=== PATIENT | male | born 1935 | race Caucasian/White ===

== ENCOUNTER → 2018-05-28 10:23 | Outpatient (CLI) | payer MEDICARE, SELFPAY ==
[2018-05-28 10:31] VITALS: BMI 34.2
[2018-05-28 11:08] VITALS: BP 150/58; PULSE 89; RESP 20; TEMP 37.4; O2SAT 97
[2018-05-28 11:09] LABS: Basophils % 0.2 % (0.1-2.0); Eosinophils # 0.1 K/mm3 (0.0-0.4); Eosinophils % 0.7 % (0.1-12.0); Hematocrit 40.7 % (42.0-52.0); Hemoglobin 13.3 g/dL (14.1-18.0); Lymphocytes # 1.4 K/mm3 (0.7-4.5); Lymphocytes % 11.2 % (10-50); Mean Corpuscular HGB Conc 32.7 g/dL (31.8-35.4); Mean Corpuscular Hemoglobin 30.8 pg (27.0-31.2); Mean Corpuscular Volume 94.5 fl (80-94); Mean Platelet Volume 6.8 fl (7.4-10.4); Monocytes # 1.2 K/mm3 (0.1-1.0); Monocytes % 9.4 % (1.7-9.3); Neutrophils # 9.5 K/mm3 (1.8-7.8); Neutrophils % 78.4 % (37.0-80.0); Platelet Count 220 K/mm3 (142-424); Red Blood Count 4.31 M/mm3 (4.60-6.20); Red Cell Distribution Width 13.6 % (11.5-17.5); White Blood Count 12.2 K/mm3 (4.8-10.8)
[2018-05-28 11:14] VITALS: BP 150/58; PULSE 89; RESP 20; TEMP 37.4; O2SAT 97
[2018-05-28 11:15] LABS: Anion Gap 10.8 mEq/L (5-15); Blood Urea Nitrogen 20 mg/dL (7-18); Calcium 8.3 mg/dL (8.5-10.1); Carbon Dioxide 27 mmol/L (21.0-32.0); Chloride 102 mmol/L (98-107); Creatinine Clearance Estimated 95 mL/min (50-200); Estimated Glomerular Filt Rate 72 ml/min (>60); GFR (African American) 87 ML/MIN (>60); Glucose 125 mg/dL (74-106); Potassium 3.8 mmoL/L (3.5-5.1); Sodium 136 mmol/L (136-145)
== END ==
PROVIDERS: PCP Emergency Medicine; Visit Provider Emergency Medicine
DX: S80.11XA Contusion of right lower leg, initial encounter (principal); M66.0 Rupture of popliteal cyst; M25.461 Effusion, right knee
CPT/HCPCS: 36415; 80048; 85025; 96365

== ENCOUNTER → 2018-05-29 09:39 | Outpatient (CLI) | payer MEDICARE, SELFPAY ==
[2018-05-29 10:20] VITALS: BMI 22.1
[2018-05-29 10:21] VITALS: BP 140/65; PULSE 68; RESP 18; TEMP 36.6; O2SAT 96
[2018-05-29 11:07] LABS: Basophils % 0.4 % (0.1-2.0); Eosinophils # 0.1 K/mm3 (0.0-0.4); Eosinophils % 0.6 % (0.1-12.0); Hemoglobin 12.4 g/dL (14.1-18.0); Lymphocytes # 1.7 K/mm3 (0.7-4.5); Lymphocytes % 16.4 % (10-50); Mean Corpuscular HGB Conc 33.5 g/dL (31.8-35.4); Mean Corpuscular Hemoglobin 31.3 pg (27.0-31.2); Mean Corpuscular Volume 93.5 fl (80-94); Mean Platelet Volume 7.4 fl (7.4-10.4); Monocytes # 0.9 K/mm3 (0.1-1.0); Monocytes % 9.2 % (1.7-9.3); Neutrophils # 7.6 K/mm3 (1.8-7.8); Neutrophils % 73.4 % (37.0-80.0); Platelet Count 248 K/mm3 (142-424); Red Blood Count 3.96 M/mm3 (4.60-6.20); Red Cell Distribution Width 13.7 % (11.5-17.5); White Blood Count 10.3 K/mm3 (4.8-10.8)
[2018-05-29 11:12] VITALS: BP 136/66; PULSE 72; RESP 18; TEMP 36.7; O2SAT 96
[2018-05-29 12:01] LABS: Erythrocyte Sedimentation Rate 70 mm/hr (0-20)
[2018-05-29 12:21] LABS: Alanine Aminotransferase 28 U/L (12-78); Albumin Level 2.7 gm/dL (3.4-5.0); Albumin/Globulin Ratio 0.7 (1.1-1.8); Alkaline Phosphatase 47 U/L (46-116); Anion Gap 15.1 mEq/L (5-15); Aspartate Amino Transferase 18 U/L (15-37); Bilirubin,Total 0.7 mg/dL (0.2-1.0); Blood Urea Nitrogen 15 mg/dL (7-18); Calcium 8.2 mg/dL (8.5-10.1); Carbon Dioxide 24 mmol/L (21.0-32.0); Chloride 102 mmol/L (98-107); Creatinine Clearance Estimated 61 mL/min (50-200); Creatinine,Serum 0.87 mg/dL (0.70-1.30); Estimated Glomerular Filt Rate 84 ml/min (>60); GFR (African American) 102 ML/MIN (>60); Globulin 3.8 gm/dl (1.3-3.2); Glucose 131 mg/dL (74-106); Potassium 4.1 mmoL/L (3.5-5.1); Sodium 137 mmol/L (136-145); Total Protein,Serum 6.5 gm/dL (6.4-8.2)
== END ==
PROVIDERS: Orthopaedic Surgery; Visit Provider Emergency Medicine
DX: M25.461 Effusion, right knee (principal)
CPT/HCPCS: 80053; 85025; 85651; 86140; 96365

== ENCOUNTER → 2018-05-30 09:10 | Outpatient (CLI) | payer MEDICARE, SELFPAY ==
[2018-05-30 09:40] VITALS: BMI 22.1
[2018-05-30 09:58] LABS: Basophils # 0.1 K/mm3 (0-0.2); Basophils % 0.5 % (0.1-2.0); Eosinophils # 0.1 K/mm3 (0.0-0.4); Hematocrit 38.8 % (42.0-52.0); Hemoglobin 12.6 g/dL (14.1-18.0); Lymphocytes # 1.4 K/mm3 (0.7-4.5); Lymphocytes % 15.9 % (10-50); Mean Corpuscular HGB Conc 32.6 g/dL (31.8-35.4); Mean Corpuscular Hemoglobin 30.4 pg (27.0-31.2); Mean Corpuscular Volume 93.2 fl (80-94); Mean Platelet Volume 7.2 fl (7.4-10.4); Monocytes # 0.7 K/mm3 (0.1-1.0); Monocytes % 7.6 % (1.7-9.3); Neutrophils # 6.6 K/mm3 (1.8-7.8); Neutrophils % 74.9 % (37.0-80.0); Platelet Count 278 K/mm3 (142-424); Red Blood Count 4.16 M/mm3 (4.60-6.20); Red Cell Distribution Width 13.6 % (11.5-17.5); White Blood Count 8.8 K/mm3 (4.8-10.8)
[2018-05-30 10:07] VITALS: BP 144/65; PULSE 68; RESP 18; TEMP 36.7; O2SAT 97
[2018-05-30 10:14] LABS: C-Reactive Protein 12.8 mg/L (0.0-0.9)
[2018-05-30 10:50] LABS: Erythrocyte Sedimentation Rate 92 mm/hr (0-20)
--- NOTE | 2018-05-30 10:50 | PC.NURSE ---
Dr Ross at bedside for Aspirating effusion from right knee. Procedure explained to patient and patient agreed with continuing with procedure. Dr Ross aspirated total 12 mls of bloody fluid with specimens sent to lab. Patient tolerated well.
--- NOTE | 2018-05-30 10:50 | PC.NURSE ---
Dr Ross at bedside
--- NOTE | 2018-05-30 12:14 | [facility].ORTHPN ---
Subjective Date: 05/30/18 Time: 09:15 Principal diagnosis: Effusion, right knee Interval history: Patient is an 82-year-old male seen in the ER today for follow-up regarding pain and swelling of his right knee and right leg. He has what appears to be an infected hematoma of his right calf and also has an effusion of the knee which has somewhat improved following previous aspiration. The knee aspirate was negative for any infection. Today he still has some pain and discomfort over the right calf with swelling in his knee. No history of any distal tingling or numbness. No history of any fevers, chills or rigors. No history of any previous significant knee problems and no history of any knee arthritis or pain previously. He says he is feeling well within himself and is eating and drinking well. 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 PN: Obj Ex Vital signs: Temp Pulse Resp BP Pulse Ox 98.1 F 68 18 144/65 H 97 05/30/18 10:07 05/30/18 10:07 05/30/18 10:07 05/30/18 10:07 05/30/18 10:07 Narrative: Laboratory Results - last 24 hr 05/30/18 09:35: WBC 8.8, RBC 4.16 L, Hgb 12.6 L, Hct 38.8 L, MCV 93.2, MCH 30.4, MCHC 32.6, RDW 13.6, Plt Count 278, MPV 7.2 L, Neut % (Auto) 74.9, Lymph % (Auto) 15.9, [place] % (Auto) 7.6, Eos % (Auto) 1.0, Baso % (Auto) 0.5, Neut # (Auto) 6.6, Lymph # (Auto) 1.4, [place] # (Auto) 0.7, Eos # (Auto) 0.1, Baso # (Auto) 0.1 05/30/18 09:35: ESR 92 H 05/30/18 09:35: C-Reactive Protein 12.8 H - Constitutional no acute distress, average body habitus - Routine HEENT Exam Head: Present: normocephalic, atraumatic Eye: Present: EOMI ENT: Present: mucous membranes moist - Routine Neck Exam Present: supple, trachea midline - Routine Respiratory Exam Present: CTA bilaterally - Routine Cardiovascular Exam Present: RRR - Routine Abdominal Exam Present: soft, normoactive bowel sounds - Routine Extremities Exam Comments: On examination of his right knee, the skin is intact. There is 2+ knee effusion. There is diffuse tenderness over the medial compartment and posterior aspect of the knee. Fullness noted in the popliteal fossa. Knee range of motion is 0 to 90 degrees of flexion. Knee joint is ligamentously stable. The extensor mechanism is intact and he is able to actively straight leg raise. Nontender over the right hip joint and right thigh. Full and pain-free movements of the right hip noted. On examination of his right leg, the skin is intact. There is diffuse tender swelling over the calf with more severe tenderness over the posterior medial aspect. He has full range of foot and ankle movements. Achilles tendon is clinically intact. Homans sign is negative. No stretch pain or other signs of compartment syndrome are noted. Dorsalis pedis and posterior tibial pulses 2+ distally. Sensation is intact to light touch throughout. - Routine Skin Exam Present: intact - Routine Neurological Exam Present: alert, oriented X3 - Routine Psychiatric Exam Present: normal affect, cooperative Progress Note: A&P (1) Hemarthrosis, right knee Status: Acute (2) Hematoma of right lower extremity Status: Acute (3) Knee effusion, right Status: Acute (4) Almaguer's cyst, ruptured Status: Acute Assessment and Plan for All Diagnoses:: I have reviewed the clinical findings and progress with the patient. I have discussed the possible diagnoses, natural history and management options in detail. He has been on IV Rocephin 2 g daily for the last [address] Arauz. The cultures from the aspirate performed previously were reported as showing no growth at 72 hours. No other confirmed infective focus is identified. I have been following him up daily in the ER where he is coming to have his IV antibiotics. He has moderate right knee effusion with a large Almaguer's cyst which possibly ruptured. He also has a large hematoma in the medial
[2018-06-01 12:09] LABS: Color,Fluid Red (Yellow); Eosinophils,Fluid 0 % (Not Estab.); Lymphocytes,Fluid 15 % (Not Estab.); Macrophages,Fluid 26 % (Not Estab.); Nucleated cells, Syn. Fluid 3630 cells/uL (0-200); Polys,Fluid 59 % (Not Estab.); RBC,Fluid 670000 /uL (Not Estab.)
== END ==
PROVIDERS: Visit Provider Orthopaedic Surgery
DX: M25.461 Effusion, right knee (principal)
CPT/HCPCS: 85025; 85651; 86140; 87070; 87205; 89051; 96365

== ENCOUNTER → 2018-06-03 12:47 | Outpatient (CLI) | payer MEDICARE, SELFPAY | PROVIDERS: Visit Provider Orthopaedic Surgery | DX: M25.461 Effusion, right knee (principal) | CPT/HCPCS: 36415; 85025; 85651; 86140 ==

== ENCOUNTER → 2018-06-03 15:01 | Outpatient (CLI) | payer MEDICARE, SELFPAY ==
[2018-06-03 13:06] LABS: Basophils # 0.1 K/mm3 (0-0.2); Basophils % 0.8 % (0.1-2.0); Eosinophils # 0.3 K/mm3 (0.0-0.4); Eosinophils % 2.8 % (0.1-12.0); Hematocrit 39.4 % (42.0-52.0); Hemoglobin 12.9 g/dL (14.1-18.0); Lymphocytes # 1.5 K/mm3 (0.7-4.5); Lymphocytes % 16.3 % (10-50); Mean Corpuscular HGB Conc 32.8 g/dL (31.8-35.4); Mean Corpuscular Hemoglobin 30.4 pg (27.0-31.2); Mean Corpuscular Volume 92.9 fl (80-94); Mean Platelet Volume 6.6 fl (7.4-10.4); Monocytes # 0.6 K/mm3 (0.1-1.0); Neutrophils # 6.7 K/mm3 (1.8-7.8); Neutrophils % 74.1 % (37.0-80.0); Platelet Count 426 K/mm3 (142-424); Red Blood Count 4.24 M/mm3 (4.60-6.20); Red Cell Distribution Width 13.5 % (11.5-17.5); White Blood Count 9.1 K/mm3 (4.8-10.8)
[2018-06-03 13:17] LABS: C-Reactive Protein 4.1 mg/L (0.0-0.9)
[2018-06-03 13:48] LABS: Erythrocyte Sedimentation Rate 98 mm/hr (0-20)
--- NOTE | 2018-06-03 15:06 | US_ITS ---
US extremity RT limited Ordering Physician: Cornelio Ross MD Patient Age: 82 years: Male HISTORY: ITS.REASON: evaluate large hematoma TECHNIQUE: Ultrasound calf COMPARISON : 05/27/[address] lower leg 05/26/2018 FINDINGS Ultrasound again performed at the posterior right calf. We again see the large heterogeneous area compatible with resolving hematoma On today's study this hematoma extends down to the junction of the middle and distal third of the posterior calf similar to perhaps slightly more inferior extent than the initial CT from 05/26/2018. Overall fairly similar size . This continues to show a fairly typical appearance of a heterogeneous hematoma with no prominent focal fluid collections or areas highly suspect for abscess.. No prominent hyperemia or increased flow. But there is some mild subcutaneous edema associated. There is some minimal nonspecific septation appearance towards inferior aspect of this hematoma collection. More superiorly there is a slightly more hypoechoic collection just posterior to the which likely reflects the patient's reaccumulated Almaguer's cyst. . This area measures 4.9 transverse x 2.2 cm AP on today's exam.Only perhaps slightly turbid fluid here which may merely reflect a proteinaceous character.. The Knee has been aspirated twice before by Dr. Ross IMPRESSION: The large hematoma is again seen throughout the posterior aspect of the calf on beginning just below Almaguer's cyst posterior to the knee and continuing down the junction of the middle and distal thirds of the posterior calf. This continues to show a appearance typical of a hematoma with no focal fluid collection suspect for abscess by ultrasound survey. There is suggestion of some reaccumulating fluid at the Almaguer's cyst posterior to the knee-this most likely accounts for the additional collection more superiorly just behind the knee. Dr. Ross he had aspirated in the knee twice previous.
== END ==
PROVIDERS: PCP Emergency Medicine; Visit Provider Orthopaedic Surgery
DX: M25.461 Effusion, right knee (principal)
CPT/HCPCS: 36415; 76882; 85025; 85651; 86140

== ENCOUNTER → 2018-06-17 08:46 | Outpatient (CLI) | payer MEDICARE, SELFPAY ==
[2018-06-17 09:01] LABS: Basophils # 0.1 K/mm3 (0-0.2); Basophils % 0.8 % (0.1-2.0); Eosinophils # 0.1 K/mm3 (0.0-0.4); Eosinophils % 1.2 % (0.1-12.0); Hematocrit 45.4 % (42.0-52.0); Hemoglobin 14.5 g/dL (14.1-18.0); Lymphocytes # 1.4 K/mm3 (0.7-4.5); Lymphocytes % 18.1 % (10-50); Mean Corpuscular HGB Conc 31.9 g/dL (31.8-35.4); Mean Platelet Volume 6.8 fl (7.4-10.4); Monocytes # 0.6 K/mm3 (0.1-1.0); Monocytes % 7.9 % (1.7-9.3); Neutrophils # 5.4 K/mm3 (1.8-7.8); Platelet Count 419 K/mm3 (142-424); Red Blood Count 4.83 M/mm3 (4.60-6.20); Red Cell Distribution Width 13.3 % (11.5-17.5); White Blood Count 7.5 K/mm3 (4.8-10.8)
[2018-06-17 09:16] LABS: C-Reactive Protein 1.5 mg/L (0.0-0.9)
[2018-06-17 09:33] LABS: Erythrocyte Sedimentation Rate 49 mm/hr (0-20)
--- NOTE | 2018-06-17 10:20 | US_ITS ---
US extremity RT limited CLINICAL INDICATION: ITS.REASON: evaluate hematoma ORDERING PHYSICIAN: Cornelio Ross MD PATIENT AGE: 82 years Comparison: 06/03/2019 FINDINGS: Heterogeneous echogenicity once again noted involving the right calf consistent with a hematoma measuring up to 2.9 cm in thickness and extending to the mid calf similar to the previous exam not significantly changed. There are areas within the hematoma which showed decreased echogenicity and may be due to evolving liquefaction as expected. No one area was suspicious for abscess development. There was discussion with the patient regarding possible aspiration. The patient desired to not go a head with aspiration but follow-up in 2 weeks. A Almaguer's cyst is once again noted showing heterogeneous echogenicity slightly more hypoechoic than when compared to the previous exam. IMPRESSION: Overall no change in the calf hematoma as described above
== END ==
PROVIDERS: Visit Provider Orthopaedic Surgery
DX: S80.11XA Contusion of right lower leg, initial encounter (principal)
CPT/HCPCS: 36415; 76882; 85025; 85651; 86140

== ENCOUNTER → 2018-10-28 07:42 | Outpatient (CLI) | payer MEDICARE, SELFPAY ==
[2018-10-28 13:55] LABS: Free T4 (Free Thyroxine) 1.09 ng/dl (0.76-1.46)
== END ==
PROVIDERS: Visit Provider Emergency Medicine
DX: Z79.899 Other long term (current) drug therapy (principal)
CPT/HCPCS: 84439

== ENCOUNTER → 2020-02-26 10:47 | Outpatient (CLI) | payer MEDICARE, SELFPAY ==
[2020-02-28 08:24] LABS: Covid-19 Nasal PCR Sendout UK Not Detected
== END ==
PROVIDERS: PCP Emergency Medicine; Visit Provider Emergency Medicine
DX: Z20.828 Contact with and (suspected) exposure to other viral communicable diseases (principal)
CPT/HCPCS: U0003

== ENCOUNTER 2020-08-17 23:45 | Emergency (ER) | payer MEDICARE, SELFPAY ==
[2020-08-18 00:04] VITALS: RESP 17; TEMP 37.1; O2SAT 98; BMI 20.3
--- NOTE | 2020-08-18 00:10 | CT_ITS ---
PROCEDURE: CT ANGIO CHEST CLINCIAL INDICATION: fall,trauma Posttraumatic pain, Blunt trauma with injury and pain, contusion/abrasion or hematoma following injury COMPARISON: No exams were available for comparison TECHNIQUE: IV Contrast: 70ML Isovue 370 Axial images obtained with sagittal and coronal reformats. All CT scans at the facility use one or more dose reduction, viz: automated exposure control, ma/kV adjustment per patient size (including targeted exams where dose is matched to indication, i.e. head), or iterative reconstruction technique. FINDINGS: HEART AND MEDIASTINAL STRUCTURES: There generalized atherosclerotic changes. Artifact is present from cardiac pacemaker device. There has been a prior median sternotomy. No evidence of aortic aneurysm or dissection. No evidence of pulmonary embolus. 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 No mediastinal or hilar mass. LUNGS AND PLEURAL SPACES: Unremarkable. BONY STRUCTURES: Mild degenerative changes thoracic spine with minimal thoracic curvature convex right UPPER ABDOMEN: Unremarkable. ADDITIONAL FINDINGS: No other significant abnormalities. IMPRESSION: No acute finding, postsurgical changes Dictated by: Maximo Garg MD 08/18/2020 06:22 Maximo Garg MD in [facility] 08/18/2020 06:22
--- NOTE | 2020-08-18 00:10 | CT_ITS ---
PROCEDURE: CT LUMBAR SPINE WO CON CLINICAL HISTORY: fall,trauma Blunt trauma with injury and pain, contusion/abrasion or hematoma following injury, left leg weakness COMPARISON: No exams were available for comparison TECHNIQUE: Axial images obtained with sagittal and coronal reformats. All CT scans at the facility use one or more dose reduction, viz: automated exposure control, ma/kV adjustment per patient size (including targeted exams where dose is matched to indication, i.e. head), or iterative reconstruction technique. FINDINGS: There is mild lumbar curvature convex left. No acute fracture or dislocation. No lytic or blastic change. L2-L3: Mild degenerative disc disease with minimal bulging disc and 2 mm retrolisthesis of L2. L3-L4: Degenerative disc disease. L4-5: Degenerative disc disease with bulging disc and facet hypertrophic change. L5-S1: Degenerative disc disease. There is mild left-sided foraminal narrowing from facet hypertrophic change. There are degenerative changes of the SI joints with osteophyte formation. Prostate is enlarged at 6 cm. IMPRESSION: 1. No acute finding. 2. Lumbar spondylosis. 3. Enlarged prostate Dictated by: Maximo Garg MD 08/18/2020 06:40 Maximo Garg MD in [facility] 08/18/2020 06:40
--- NOTE | 2020-08-18 00:10 | CT_ITS ---
PROCEDURE: CT ABDOMEN PELVIS W CON CLINICAL INDICATION: fall,trauma Blunt trauma with injury and pain, contusion/abrasion or hematoma following injury COMPARISON: CT CT ANGIO CHEST from 08/18/2020 TECHNIQUE: IV Contrast: 75ML Isovue 370 Oral Contrast None Axial images obtained with sagittal and coronal reformats. All CT scans at the facility use one or more dose reduction, viz: automated exposure control, ma/kV adjustment per patient size (including targeted exams where dose is matched to indication, i.e. head), or iterative reconstruction technique. FINDINGS: LOWER THORAX: No acute finding ABDOMEN & PELVIS: Liver, gallbladder, spleen, adrenal glands, pancreas, and kidneys have an unremarkable appearance aside from 2 small left renal cortical cysts less than 1 cm. No evidence of retroperitoneal hemorrhage. There is a mild amount of retained colonic feces. No evidence of appendicitis. No intestinal obstruction or free air. The bowel gas pattern is nonspecific. There is a focal area of thickening of the sigmoid colon at the rectosigmoid junction. No stranding of the pericolic fat. Colonic diverticulosis noted without evidence of diverticulitis. The prostate is enlarged at 6.2 x 6 cm. Mild degenerative changes are noted of the lumbar and hips. A 9 mm lucency is present in the S1 vertebral body posteriorly on the right. This has a benign appearance and may represent a subcortical cyst. IMPRESSION: 1. No acute finding. 2. Focal wall thickening proximal sigmoid colon which could be due to lack of distention or neoplasm versus focal colitis. Dictated by: Maximo Garg MD 08/18/2020 06:30 Maximo Garg MD in [facility] 08/18/2020 06:30
--- NOTE | 2020-08-18 00:10 | CT_ITS ---
PROCEDURE: CT THORACIC SPINE WO CON CLINICAL HISTORY: fall,trauma Injury with pain COMPARISON: CT CSWO CT CERVICAL SPINE W/O CONT from 12/08/2013 TECHNIQUE: Axial images obtained with sagittal and coronal reformats. All CT scans at the facility use one or more dose reduction, viz: automated exposure control, ma/kV adjustment per patient size (including targeted exams where dose is matched to indication, i.e. head), or iterative reconstruction technique. FINDINGS: There is normal alignment. There is mild thoracic curvature convex right. Mild multilevel degenerative changes with endplate osteophytes and decrease in the disc spaces. There is an old fracture versus ununited ossification center at the tip of the spinous process of C7 and T1 unchanged from 12/08/2013. IMPRESSION: No acute finding Dictated by: Maximo Garg MD 08/18/2020 06:35 Maximo Garg MD in [facility] 08/18/2020 06:35
[2020-08-18 00:30] LABS: Alanine Aminotransferase 24 U/L (12-78); Albumin Level 4.5 g/dl (3.5-5.0); Alkaline Phosphatase 58 U/L (38-126); Anion Gap 13.1 mEq/L (5-15); Aspartate Amino Transferase 49 U/L (17-59); Bilirubin,Indirect 1.3 mg/dL (0.0-0.9); Bilirubin,Total 1.3 mg/dl (0.2-1.3); Bilirubin,Unconjugated 1.2 mg/dL (0.0-1.1); Blood Urea Nitrogen 16 mg/dl (9-20); Calcium 9.2 mg/dl (8.4-10.2); Carbon Dioxide 24 mmol/L (22.0-30.0); Chloride 94 mmol/L (98-107); Creatinine Clearance Estimated 53 mL/min (50-200); Estimated Glomerular Filt Rate 128 ml/min (>60); GFR (African American) 155 ML/MIN (>60); Glucose 129 mg/dl (74-100); Potassium 4.1 mmoL/L (3.5-5.1); Sodium 127 mmol/L (136-145); Total Protein,Serum 8.1 g/dl (6.3-8.2)
[2020-08-18 00:34] LABS: Basophils % 0.2 % (0.1-2.0); Eosinophils # 0.1 K/mm3 (0.0-0.4); Eosinophils % 0.6 % (0.1-12.0); Hemoglobin 16.1 g/dL (14.1-18.0); Lymphocytes # 1.4 K/mm3 (0.7-4.5); Lymphocytes % 13.9 % (10-50); Mean Corpuscular HGB Conc 34.3 g/dL (31.8-35.4); Mean Corpuscular Hemoglobin 30.6 pg (27.0-31.2); Mean Corpuscular Volume 89.1 fl (80-94); Mean Platelet Volume 7.7 fl (7.4-10.4); Monocytes # 0.7 K/mm3 (0.1-1.0); Monocytes % 6.4 % (1.7-9.3); Neutrophils # 8.1 K/mm3 (1.8-7.8); Neutrophils % 78.9 % (37.0-80.0); Platelet Count 295 K/mm3 (142-424); Red Blood Count 5.27 M/mm3 (4.60-6.20); Red Cell Distribution Width 13.2 % (11.5-17.5); White Blood Count 10.3 K/mm3 (4.8-10.8)
[2020-08-18 00:35] LABS: C-Reactive Protein 26.1 mg/L (0-4)
--- NOTE | 2020-08-18 00:43 | [facility].EDFALL ---
ED Disposition Clinical Impression: Enlarged prostate Abdominal pain Qualifiers: Abdominal location: generalized Qualified Code(s): R10.84 - Generalized abdominal pain HTN (hypertension) Qualifiers: Hypertension type: essential hypertension Qualified Code(s): I10 - Essential (primary) hypertension Disposition: Home, Self-Care Condition on Discharge: Good Instructions: DI for Constipation Additional Instructions: call urology thursday and monitor bp Referrals: Goldy Arauz MD [Primary Care Provider] - - Critical Care Critical Care Time: No Attestation: On 08/17/20, the high probability of a clinically significant, sudden or life threatening deterioration of the following system(s) required my full and direct attention, intervention and personal management. The time I documented below is in addition to time spent performing reported procedures but includes the following listed in this critical care notation. Medical Decision Making - Medical Records Medical records reviewed: Yes: I reviewed the patient's medical records. - Berny Inquiry Pt receiving controlled substance: No Vital Signs: 08/18/20 00:04 08/18/20 00:46 08/18/20 01:45 Temperature 98.7 F Temperature Source Oral Pulse Rate [Right Brachial] 67 65 Respiratory Rate 17 17 17 Blood Pressure [Right Arm] 199/84 H 210/86 H Blood Pressure Mean [Right Arm] 122 127 Blood Pressure Source [Right Arm] Automatic Cuff Automatic Cuff Blood Pressure Position [Right Arm] Supine Supine 02 Sat by Pulse Oximetry 98 100 99 Oxygen Delivery Method Room Air Room Air Room Air 08/18/20 02:00 Temperature Temperature Source Pulse Rate [Right Brachial] 68 Respiratory Rate 17 Blood Pressure [Right Arm] 221/92 H Blood Pressure Mean [Right Arm] 135 Blood Pressure Source [Right Arm] Manual Cuff/ Auscultation Blood Pressure Position [Right Arm] Supine 02 Sat by Pulse Oximetry 98 Oxygen Delivery Method Room Air - Lab Data Lab results reviewed: Yes: I reviewed the patient's lab results. Lab Results 08/18/20 00:00: WBC 10.3, RBC 5.27, Hgb 16.1, Hct 47.0, MCV 89.1, MCH 30.6, MCHC 34.3, RDW 13.2, Plt Count 295, MPV 7.7, Neut % (Auto) 78.9, Lymph % (Auto) 13.9, [place] % (Auto) 6.4, Eos % (Auto) 0.6, Baso % (Auto) 0.2, Neut # (Auto) 8.1 H, Lymph # (Auto) 1.4, [place] # (Auto) 0.7, Eos # (Auto) 0.1, Baso # (Auto) 0.0, ESR 4 08/18/20 00:00: Sodium 127 L, Potassium 4.1, Chloride 94 L, Carbon Dioxide 24, Anion Gap 13.1, BUN 16, Creatinine 0.60 L, Estimated Creat Clear 53, Estimated GFR 128, Est GFR ( Amer) 155, Glucose 129 H, Calcium 9.2, Total Bilirubin 1.3, Direct Bilirubin 0.0, Conjugated Bilirubin 0.0, Indirect Bilirubin 1.3 H, Unconjugated Bilirubin 1.2 H, AST 49, ALT 24, Alkaline Phosphatase 58, C-Reactive Protein 26.1 H, Total Protein 8.1, Albumin 4.5 08/18/20 00:00: Procalcitonin 0.062 08/18/20 00:00: Lactate 0.9 08/18/20 00:00: Amylase 58, Lipase 184 08/18/20 02:40: Stool Occult Blood Negative Result diagrams: 08/18/20 00:00 08/18/20 00:00 Orders (Tests/Meds): ED MEDICATIONS Generic Name Dose Route Start Last Admin Trade Name Freq PRN Reason Stop Dose Admin Sodium Chloride 1,000 mls @ 999 mls/hr 08/18/20 01:00 08/18/20 00:55 Sod Chlor 0.9% 1000ml Bag IV 08/18/20 02:00 999 mls/hr .Q1H1M NITISH Administration Discontinued Medications Generic Name Dose Route Start Last Admin Trade Name Freq PRN Reason Stop Dose Admin Iopamidol 100 ml 08/18/20 01:29 08/18/20 01:32 Iopamidol-370 (76%);100ml Bottle IV 08/18/20 01:30 100 ml ONCE ONE Administration Magnesium Citrate 1 bot 08/18/20 02:44 Magnesium Citrate 10oz Bottle PO 08/18/20 02:45 ONCE ONE Sodium Chloride 10 ml 08/18/20 01:29 08/18/20 01:32 Sodium Chloride 0.9% 10ml Syr (Rad Only) IV 08/18/20 01:30 10 ml ONCE ONE Administration ORDERS Category Date Time Status CT abdomen pelvis w con Stat Cat Scan 08/18/20 00:[address] angio
[2020-08-18 00:46] VITALS: BP 199/84; PULSE 67; RESP 17; O2SAT 100
[2020-08-18 00:49] LABS: Procalcitonin 0.062 ng/mL (0.0-2.0)
[2020-08-18 01:02] LABS: Erythrocyte Sedimentation Rate 4 mm/hr (0-20)
[2020-08-18 01:22] LABS: Lactic Acid 0.9 mmol/L (0.7-2.1)
[2020-08-18 01:45] VITALS: BP 210/86; PULSE 65; RESP 17; O2SAT 99
[2020-08-18 01:46] LABS: Amylase 58 U/L (30-110); Lipase 184 U/L (23-300)
[2020-08-18 02:00] VITALS: BP 221/92; PULSE 68; RESP 17; O2SAT 98
[2020-08-18 02:44] LABS: Occult Blood,Stool Negative (Negative)
[2020-08-18 02:51] LABS: Microscopic, Urine URINE MICROSCOPIC (MICROSCOPIC)
[2020-08-18 02:53] VITALS: BP 185/75; PULSE 87; RESP 19; TEMP 36.9; O2SAT 98
[2020-08-18 02:56] LABS: Appearance,Urine CLEAR (Clear); Bilirubin,Urine Negative (Negative); Blood, Urine Negative (Negative); Color,Urine YELLOW (Yellow); Glucose,Urine (UA) Negative (Negative); Ketones,Urine 2+ (Negative); Leukocyte Esterase,Urine Negative (Negative); Nitrate,Urine Negative (Negative); PH,Urine 6.5 (5.0-8.5); Protein,Urine Negative (Negative); Specific Gravity, Urine 1.015 (1.005-1.030); Urobilinogen,Urine 0.2 EU/dl (0.2)
[2020-08-18 03:04] LABS: Amorphous Sediment,Urine Trace /lpf
[2020-08-18 03:31] LABS: Prostate Specific Ag Screen 9.3 ng/ml (0.0-4.0)
== END 2020-08-18 02:57 | disposition home or self-care (01) ==
PROVIDERS: Emergency Provider Emergency Medicine; PCP Emergency Medicine
DX: R10.84 Generalized abdominal pain (principal); N40.0 Benign prostatic hyperplasia without lower urinary tract symptoms; I10 Essential (primary) hypertension; K59.00 Constipation, unspecified; W00.0XXA Fall on same level due to ice and snow, initial encounter; Y92.414 Local residential or business street as the place of occurrence of the external cause; Z12.5 Encounter for screening for malignant neoplasm of prostate
CPT/HCPCS: 71275; 72128; 72131; 74177; 80048; 80076; 81001; 82150; 82272; 83605; 83690; 84145; 85025; 85651; 86140; 87040; 96365; 99284; G0103; G0328; Q9967

== ENCOUNTER → 2020-10-30 10:01 | Outpatient (CLI) | payer MEDICARE, SELFPAY | PROVIDERS: Visit Provider Emergency Medicine | DX: Z20.822 Contact with and (suspected) exposure to COVID-19 (principal) | CPT/HCPCS: U0003 ==

== ENCOUNTER → 2020-12-13 08:31 | Outpatient (CLI) | payer MEDICARE, SELFPAY | PROVIDERS: Visit Provider Emergency Medicine | DX: Z11.52 Encounter for screening for COVID-19 (principal) | CPT/HCPCS: U0003 ==

== ENCOUNTER → 2021-02-07 07:38 | Outpatient (CLI) | payer MEDICARE, SELFPAY | PROVIDERS: Visit Provider Emergency Medicine | DX: Z11.52 Encounter for screening for COVID-19 (principal) | CPT/HCPCS: U0003 ==

== ENCOUNTER → 2021-04-27 10:10 | Outpatient (CLI) | payer MEDICARE, SELFPAY | PROVIDERS: Visit Provider Emergency Medicine | DX: Z20.822 Contact with and (suspected) exposure to COVID-19 (principal) | CPT/HCPCS: C9803; U0003; U0005 ==

== ENCOUNTER → 2021-05-24 14:05 | Outpatient (CLI) | payer MEDICARE, SELFPAY ==
[2021-05-24 14:08] LABS: Adenovirus,PCR Not Detected (NotDetected); Bordetella Pertussis Not Detected (NotDetected); Chlamydophila Pneumoniae, PCR Not Detected (NotDetected); Coronavirus 19, PCR Not Detected (NotDetected); Coronavirus 229E Not Detected (NotDetected); Coronavirus NL63 Not Detected (NotDetected); Coronavirus OC43 Not Detected (NotDetected); Coronovirus HKU1,PCR Not Detected (NotDetected); Human Metapneumovirus Not Detected (NotDetected); Influenza A, PCR Not Detected (NotDetected); Influenza AH1, 2009 Not Detected (NotDetected); Influenza AH1, PCR Not Detected (NotDetected); Influenza AH3,PCR Not Detected (NotDetected); Influenza B, PCR Not Detected (NotDetected); Mycoplasma Pneumoniae, PCR Not Detected (NotDetected); Parainfluenza 1, PCR Not Detected (NotDetected); Parainfluenza 2, PCR Not Detected (NotDetected); Parainfluenza 3, PCR Not Detected (NotDetected); Parainfluenza 4, PCR Not Detected (NotDetected); Respiratory Syncytial Virus Not Detected (NotDetected); Rhinovirus/Enterovirus Not Detected (NotDetected)
== END ==
PROVIDERS: Visit Provider Emergency Medicine
DX: Z11.52 Encounter for screening for COVID-19 (principal)
CPT/HCPCS: 87581; 87632; 87798; C9803; U0003; U0005

== ENCOUNTER → 2021-07-24 16:25 | Outpatient (CLI) | payer MEDICARE, SELFPAY | PROVIDERS: PCP Emergency Medicine; Visit Provider Emergency Medicine | DX: Z20.822 Contact with and (suspected) exposure to COVID-19 (principal) | CPT/HCPCS: C9803; U0003; U0005 ==

== ENCOUNTER 2023-04-21 10:09 | Outpatient (CLI) | payer MEDICARE, SELFPAY ==
[2023-04-21 10:40] VITALS: BP 153/63; PULSE 78; RESP 18; O2SAT 96
--- NOTE | 2023-04-21 12:13 | PC.NURSE ---
1213-ariel moody, rt here to do ekg
--- NOTE | 2023-04-21 12:13 | ECG_ITS ---
APPROVED REPORT Exam: Resting ECG HR:73 bpm ECG Measurements Heart Rate 73 AXES MS 152 P 99 QRSd 181 QRS -77 QT 457 T 86 QTc 482 Conclusion ELECTRONIC VENTRICULAR PACEMAKER ABNORMAL RHYTHM ECG UNCONFIRMED REPORT Electronically signed by : Venancio Devlin MD 04/21/2023 20:07:35
[2023-04-21 12:56] VITALS: BMI 22.5
[2023-04-21 13:36] LABS: Potassium 4.9 mmoL/L (3.5-5.1)
--- NOTE | 2023-04-21 14:45 | PC.NURSE ---
1445-pt's spoke with and dr. mitchell pt is going to [facility] to er for further evaluation in private vehicle.
[2023-04-21 15:00] VITALS: BP 167/82; PULSE 94; RESP 18; O2SAT 95
== END 2023-04-21 15:00 | disposition home or self-care (01) ==
LOC: INF 10:11
PROVIDERS: PCP Emergency Medicine; Visit Provider Emergency Medicine
DX: E86.0 Dehydration (principal)
CPT/HCPCS: 36415; 84132; 93005; 96360; 96361

== ENCOUNTER → 2023-04-21 11:01 | Outpatient (CLI) | payer MEDICARE, SELFPAY ==
[2023-04-21 10:29] LABS: Microscopic,Cath URINE MICROSCOPIC (MICROSCOPIC)
[2023-04-21 10:40] LABS: Basophils % 0.2 % (0.1-2.0); Eosinophils % 0.2 % (0.1-12.0); Hematocrit 44.2 % (42.0-52.0); Hemoglobin 15.4 g/dL (14.1-18.0); Lymphocytes # 0.5 K/mm3 (0.7-4.5); Lymphocytes % 3.7 % (10-50); Mean Corpuscular HGB Conc 34.9 g/dL (31.8-35.4); Mean Corpuscular Volume 91.7 fl (80-94); Mean Platelet Volume 8.2 fl (7.4-10.4); Monocytes # 0.7 K/mm3 (0.1-1.0); Monocytes % 4.9 % (1.7-9.3); Neutrophils # 12.3 K/mm3 (1.8-7.8); Neutrophils % 90.9 % (37.0-80.0); Platelet Count 311 K/mm3 (142-424); Red Blood Count 4.83 M/mm3 (4.60-6.20); Red Cell Distribution Width 13.3 % (11.5-17.5); White Blood Count 13.5 K/mm3 (4.8-10.8)
[2023-04-21 10:45] LABS: Alanine Aminotransferase 21 U/L (12-78); Albumin Level 3.9 g/dl (3.5-5.0); Albumin/Globulin Ratio 1.2 (1.1-1.8); Alkaline Phosphatase 75 U/L (38-126); Anion Gap 34.4 mEq/L (5-15); Aspartate Amino Transferase 23 U/L (17-59); Bilirubin,Total 1.1 mg/dl (0.2-1.3); Calcium 8.7 mg/dl (8.4-10.2); Carbon Dioxide 13 mmol/L (22.0-30.0); Chloride 90 mmol/L (98-107); Chol/HDL Ratio 5.6 (1-3.5); Cholesterol 208 mg/dl (140-200); Globulin 3.2 g/dL (1.3-3.2); Glucose 103 mg/dl (74-100); HDL Cholesterol 37 mg/dl (40-60); Sodium 131 mmol/L (136-145); Total Protein,Serum 7.1 g/dl (6.3-8.2); Triglycerides 128 mg/dl (30-150); VLDL Cholesterol 26 mg/dL (0-40)
[2023-04-21 10:46] LABS: MANUAL DIFFERENTIAL MANUAL DIFFERENTIAL (MANUAL DIFF)
[2023-04-21 10:52] LABS: Estimated Glomerular Filt Rate 3 ml/min (>60); GFR (African American) 4 ML/MIN (>60)
[2023-04-21 10:56] LABS: Direct LDL Cholesterol 131.34 mg/dL (100-129)
[2023-04-21 11:01] LABS: 25-OH Vitamin D, Total 23.9 ng/mL (30-100)
[2023-04-21 11:02] LABS: T4 (Thyroxine) 6.7 ug/dl (5.53-11.0)
[2023-04-21 11:16] LABS: Prostate Specific Ag Screen 9.8 ng/ml (0.0-4.0)
[2023-04-21 11:22] LABS: Lymphocytes % 3 % (10-50); Monocytes % 4 % (2-9); Neutrophils % 93 % (42-76); Platelet Estimate Normal; RBC Morphology Normal; Total Cells Counted 100
[2023-04-21 11:43] LABS: Blood Urea Nitrogen 138 mg/dl (9-20); Potassium 6.4 mmoL/L (3.5-5.1)
[2023-04-21 11:56] LABS: Appearance,Urine/Cath CLEAR (Clear); Bilirubin,Cath Negative (Negative); Blood, Urine/Cath 3+ (Negative); Color,Urine/Cath YELLOW (Yellow); Glucose,Urine/Cath (UA) Negative (Negative); Ketones,Urine/Cath Negative (Negative); Leukocyte Esterase,Cath TRACE (Negative); Nitrate,Cath POSITIVE (Negative); PH,Urine/Cath 5.5 (5.0-8.5); Protein,Urine/Cath TRACE (Negative); Urobilinogen,Cath 0.2 EU/dl (0.2)
[2023-04-21 12:15] LABS: Bacteria,Urine/Cath TRACE /lpf; RBC,Urine/Cath TNTC # /hpf (0-3); Squamous Epithelial Ur./Cath Occasional #/hpf (0-5); WBC,Urine/Cath Occasional #/hpf (0-3)
== END ==
PROVIDERS: PCP Emergency Medicine; Visit Provider Emergency Medicine
DX: R39.9 Unspecified symptoms and signs involving the genitourinary system (principal); R10.84 Generalized abdominal pain; I10 Essential (primary) hypertension; E55.9 Vitamin D deficiency, unspecified; Z12.5 Encounter for screening for malignant neoplasm of prostate; R97.20 Elevated prostate specific antigen [PSA]; E86.0 Dehydration
CPT/HCPCS: 36415; 80053; 80061; 81001; 82306; 84132; 84436; 84443; 85007; 85025; 87086; 93005; 96360; 96361; G0103

== ENCOUNTER → 2023-04-27 16:06 | Outpatient (CLI) | payer MEDICARE, SELFPAY | PROVIDERS: PCP Emergency Medicine; Visit Provider Emergency Medicine | DX: N17.9 Acute kidney failure, unspecified (principal) ==